=== PATIENT | female | born 1930 | race Caucasian/White ===

== ENCOUNTER 2017-03-22 18:47 | Emergency (ER) | payer MEDICARE, OTHER ==
[~2017-03-22] VITALS: Ht 147.3 cm; Wt 50.0 kg
[~2017-03-22 18:47] MED LIST: GABA300C5 PO; ISOS60TA PO; LEVO88TA2 PO; LISI-515 PO; LORA-392 PO; LOSA25TA PO; MEDI220T PO; METF500T PO; METO50TA11 PO; MIRA33504 PO; NITR1SUB3 SL; OMEP20TA PO; RANO500 PO
[2017-03-22 19:12] VITALS: BP 156/70; PULSE 95; RESP 16; TEMP 98.1; O2SAT 100
[2017-03-22 19:14] VITALS: RESP 16; O2SAT 100
--- NOTE | 2017-03-22 19:14 | PD ---
HPI Chief Complaint: Agitation Time Seen by Provider: 19:05 Travel History International Travel<30 days: No Contact w/Intl Traveler<30days: No History of Present Illness HPI The patient is an 86 year old female who presents to the [facility] emergency department with a history of agitation and paranoia prompting her family to call ambulance services to have her transported to the emergency department. The patient was combative at home and they reported to ambulance services that they are unable to care for her at home because of this. According to the record, the patient has a history of being on hospice since January of 2016. The patient denies having any acute complaints at this time other than that she is concerned that "bad people are trying to kill me". The patient denies any recent fevers, cough, congestion, neck pain, chest pain, shortness of breath, abdominal pain, vomiting, diarrhea, urinary symptoms, one- sided weakness, slurred speech, vision changes, difficulty with word finding ability, or facial droop. PFSH Past Medical History Narrative Medical The patient's past medical history is significant for hypertension, coronary artery disease, hypothyroid disorder, diabetes mellitus, arthritis, acid reflux. Asthma: No Congestive Heart Failure: Yes COPD: No Dementia: Yes Diabetes: Yes Diminished Hearing: No Hypertension: Yes Neurologic: Yes (NEUROPATHY BILAT HANDS AND FEET.) Sleep Apnea: No : 4 Para: 4 Past Surgical History Narrative Surgical The patient's past surgical history is significant for a , coronary artery bypass grafting, hysterectomy Section: Yes Coronary Artery Bypass Graft: Yes (TRIPLE CABG X2) Hysterectomy: Yes Social History Alcohol Use: No Tobacco Use: No (QUIT 1984) Substance Use: No Allergies-Medications (Allergen,Severity, Reaction): Coded Allergies: No Known Allergies (Verified Allergy, Severe, 05/24/04) Reported Meds & Prescriptions Reported Meds & Active Scripts Active Macrobid (Nitrofurantoin Monoh/Nitrofur Macro) 100 Mg Cap 100 Mg PO BID 10 Days Reported Miralax Powder (Polyethylene Glycol 3350 Powder) 17 Gm Powd 17 Gm PO DAILY Mix and dissolve one measuring cap-ful (17 grams) in water or juice. Omeprazole 20 Mg Tab 20 Mg PO BID Omeprazole 20 Mg Tab 20 Mg PO DAILY Naproxen Sodium 220 Mg Tab 220 Mg PO DAILY Gabapentin 300 Mg Cap 300 Mg PO BID Losartan (Losartan Potassium) 25 Mg Tab 25 Mg PO DAILY Ativan (Lorazepam) 0.5 Mg Tab 0.5 Mg PO Q4H PRN Metformin (Metformin HCl) 500 Mg Tab 500 Mg PO BIDPC With meals Metoprolol Succinate ER 24 HR (Metoprolol Succinate) 50 Mg Tab 50 Mg PO BID Levothyroxine (Levothyroxine Sodium) 88 Mcg Tab 88 Mcg PO DAILY Nitroglycerin SL (Nitroglycerin) 0.4 Mg Subl 0.4 Mg SL DIRECTED PRN ONE TABLET UNDER THE TONGUE NEEDED FOR CHEST PAIN, MAY REPEAT EVERY FIVE MINUTES FOR A TOTAL OF 3 DOSES OR CALL 911 IF NO RELIEF Isosorbide Mononitrate ER (Isosorbide Mononitrate) 60 Mg Tab 60 Mg PO DAILY Ranexa ER 12 HR (Ranolazine) 500 Mg Tab 500 Mg PO BID Lisinopril 20 Mg Tab 20 Mg PO DAILY Review of Systems ROS Limitations: Unresponsive General / Constitutional: No: Fever Eyes: No: Visual changes HENT: No: Headaches Cardiovascular: No: Chest Pain or Discomfort Respiratory: No: Shortness of Breath Gastrointestinal: No: Abdominal Pain Genitourinary: No: Dysuria Musculoskeletal: No: Pain Skin: No Rash Neurologic: Positive: Change in Mentation (increased paranoia), No: Weakness, Focal Abnormalities, Slurred Speech, Sensory Disturbance Psychiatric: Positive: Disorder of Thought (increased paranoia), Other (acute agitation), No: Depression Endocrine: No: Polydipsia Hematologic/Lymphatic: No: Easy Bruising Physical Exam Narrative General: The patient is a well-developed well-nourished female in no acute distress, initially on arrival, however when she attempts to get up out of the bed, redirected to sit down she becomes agitated state that people are trying to kill her. Head and Neck exam: Head is normocephalic atraumatic. Eyes: EOMI, pupils are equal round and reactive to light. Nose: Midline septum with pink mucous membranes Mouth: Dentition unremarkable. Moist mucus membranes. Posterior oropharynx is not erythematous. No tonsillar hypertrophy. Uvula midline. Airway patent. Neck: No palpable lymphadenopathy. No nuchal rigidity. No thyromegaly. Cardiovascular: Regular rate and rhythm without murmurs, gallops, or rubs. Lungs: Clear to auscultation bilaterally. No wheezes, rhonchi, or rales. Abdomen: Soft, without tenderness to palpation in all 4 quadrants of the abdomen. No guarding, rebound, or rigidity. Normal bowel sounds are audible. No tenderness on palpation of McBurney's point. Extremities: No clubbing, cyanosis, or edema. 2+ pulses in all 4 extremities. No calf tenderness on palpation. Back: No spinous process tenderness to palpation. No costovertebral angle tenderness to palpation. Neurologic Exam: This patient is oriented to person, place, however not time or situation. The patient has cranial nerves II through XII intact, strength is 5 over 5 in all 4 extremities, intact sensation over all dermatomes. Skin Exam: No rash noted. Intact skin that is warm and dry. Data Data Last Documented VS Vital Signs Date Time Temp Pulse Resp B/P Pulse Ox O2 Delivery O2 Flow Rate FiO2 03/22/17 19:14 95 16 100 Room Air 03/22/17 19:12 98.1 156/70 Orders Complete Blood Count With Diff (03/22/17 19:05) Comprehensive Metabolic Panel (03/22/17 19:05) Urinalysis - C+S If Indicated (03/22/17 19:05) Cath For Specimen (03/22/17 19:05) Iv Access Insert/Monitor (03/22/17 19:05) Ecg Monitoring (03/22/17 19:05) Oximetry (03/22/17 19:05) Lorazepam Inj (Ativan Inj) (03/22/17 19:15) Urine Culture (03/22/17 21:50) Ceftriaxone Inj (Rocephin Inj) (03/22/17 22:30) Labs Laboratory Tests Test 03/22/17 03/22/17 19:28 21:50 White Blood Count 7.0 TH/MM3 Red Blood Count 4.00 MIL/MM3 Hemoglobin 12.4 GM/DL Hematocrit 36.8 % Mean Corpuscular Volume 92.0 FL Mean Corpuscular Hemoglobin 31.1 PG Mean Corpuscular Hemoglobin 33.8 % Concent Red Cell Distribution Width 14.3 % Platelet Count 200 TH/MM3 Mean Platelet Volume 7.1 FL Neutrophils (%) (Auto) 60.3 % Lymphocytes (%) (Auto) 28.7 % Monocytes (%) (Auto) 8.0 % Eosinophils (%) (Auto) 2.0 % Basophils (%) (Auto) 1.0 % Neutrophils # (Auto) 4.2 TH/MM3 Lymphocytes # (Auto) 2.0 TH/MM3 Monocytes # (Auto) 0.6 TH/MM3 Eosinophils # (Auto) 0.1 TH/MM3 Basophils # (Auto) 0.1 TH/MM3 CBC Comment DIFF FINAL Differential Comment Sodium Level 140 MEQ/L Potassium Level 4.4 MEQ/L Chloride Level 103 MEQ/L Carbon Dioxide Level 29.9 MEQ/L Anion Gap 7 MEQ/L Blood Urea Nitrogen 23 MG/DL Creatinine 1.31 MG/DL Estimat Glomerular Filtration 38 ML/MIN Rate Random Glucose 94 MG/DL Calcium Level 9.1 MG/DL Total Bilirubin 0.7 MG/DL Aspartate Amino Transf 23 U/L (AST/SGOT) Alanine Aminotransferase 22 U/L (ALT/SGPT) Alkaline Phosphatase 129 U/L Total Protein 7.3 GM/DL Albumin 3.4 GM/DL Urine Color YELLOW Urine Turbidity HAZY Urine pH 6.0 Urine Specific [place] 1.014 Urine Protein NEG mg/dL Urine Glucose (UA) NEG mg/dL Urine Ketones NEG mg/dL Urine Occult Blood NEG Urine Nitrite POS Urine Bilirubin NEG Urine Urobilinogen LESS THAN 2.0 MG/DL Urine Leukocyte Esterase LARGE Urine RBC 4 /hpf Urine WBC 143 /hpf Urine WBC Clumps FEW Microscopic Urinalysis Comment CATH-CULTURE IND MDM Medical Decision Making Medical Screen Exam Complete: Yes Emergency Medical Condition: Yes Medical Record Reviewed: Yes Differential Diagnosis Altered mentation with agitation related to an infectious process such as a urinary tract infection, versus progressive dementia with agitation and psychosis, versus psychiatric disorder Narrative Course During the course of the patients emergency department visit, the patients history, examination, and differential diagnosis were reviewed with the patient. The patient had IV access obtained and blood work sent for analysis. The patient was placed on a diagnostic cardiac sonographer with oximetry and blood pressure monitoring. A call will be placed out to [facility] regarding this patient' s case for further recommendations regarding placement. The patient was initially provided Ativan 0.5 mg IV. The patients laboratory studies were reviewed and remarkable for a CBC that is within normal limit. CMP is remarkable for BUN of 23, creatinine 1.31, alkaline phosphatase 129, urinalysis shows positive nitrite, large leukocyte esterase, 4 rbc's, wbc's 143, wbc clumps few. The patient was given Rocephin 1 g IV. The [facility] nurse arrived at the patient's bedside. She spoke to the patient's family via phone as they never arrived in the emergency department. They reported to her that they do not feel comfortable with her coming home due to her agitation, as they are having difficulty caring for her. Placement will be arranged by [facility] as the patient at this time does not require admission to the hospital. The patient's [facility] nurse reports that this will be done in the morning. The patient will be discharged to a placement facility through [facility] with a prescription for Macrobid. The patient is resting comfortably and feels better, is alert and in no distress. The patients results and examination findings were discussed with the patient. The repeat examination is unremarkable and benign. The history, exam, diagnostic testing, and current condition do not suggest any significant pathology to warrant further testing, continued ED treatment, admission, or surgical evaluation at this point. The vital signs have been stable. The patient does not have uncontrollable pain, intractable vomiting, or other significant symptoms. The patient's condition is stable and appropriate for discharge. The patient will pursue further outpatient evaluation with a primary care physician or other designated or consulting physician as indicated in the discharge instructions. The patient expressed understanding and was agreeable with this plan. Diagnosis Primary Impression: Agitation Additional Impression: Urinary tract infection Qualified Code: N39.0 - Urinary tract infection without hematuria, site unspecified Referrals: Primary Care Physician 2 days Patient Instructions: General Instructions, Urinary Tract Infection in Women ( ED) Med/Other Pt SpecificInfo: Prescription(s) given Scripts Nitrofurantoin Monohydrate Macrocrystals (Macrobid)100 Mg Pyl215 Mg PO BID 10 Days Ref 0 Prov:Angelita Mahmood MD 03/22/17 Disposition: 03 DISCHARGE TO SNF Condition: Stable Angelita Mahmood MD March 22, 2017 19:14
[2017-03-22] MEDS ORDERED: LORazepam 2 MG/ML VIAL IV PUSH ONE (19:15)
[2017-03-22 19:32] LABS: AUTOMATED NEUTROPHIL # 4.2 TH/MM3 (1.8-7.7); BASOPHIL # 0.1 TH/MM3 (0-0.2); EOSINOPHIL # 0.1 TH/MM3 (0-0.4); HEMATOCRIT 36.8 % (35.0-46.0); HEMO FLAGS DIFF FINAL; LYMPH % 28.7 % (9.0-44.0); MEAN CORPUSCULAR HEMOGLOBIN 31.1 PG (27.0-34.0); MEAN CORPUSCULAR HGB CONC 33.8 % (32.0-36.0); NEUT % 60.3 % (16.0-70.0); PLATELET COUNT 200 TH/MM3 (150-450); RED CELL DISTRIBUTION WIDTH 14.3 % (11.6-17.2)
[2017-03-22 19:56] LABS: ANION GAP 7 MEQ/L (5-15); AST (GOT) 23 U/L (15-37); BICARBONATE 29.9 MEQ/L (21.0-32.0); BLOOD UREA NITROGEN 23 MG/DL (7-18); CHLORIDE 103 MEQ/L (98-107); GLOMERULAR FILTRATION RATE 38 ML/MIN (>89); POTASSIUM 4.4 MEQ/L (3.5-5.1); SODIUM (NA) 140 MEQ/L (136-145)
[2017-03-22 20:00] LABS: ALKALINE PHOSPHATASE 129 U/L (45-117); ALT (GPT) 22 U/L (10-53); TOTAL BILIRUBIN ADULT 0.7 MG/DL (0.2-1.0)
[2017-03-22 22:14] LABS: BLOOD, URINE NEG (NEG); COMMENT (UR) CATH-CULTURE IND; CULTURE IF INDICATED CATH CULTURE IND; GLUCOSE,URINE NEG (NEG); KETONE, URINE NEG (NEG); NITRITE,URINE POS (NEG); URINE COLOR YELLOW (YELLW/STRAW)
[2017-03-22] MEDS ORDERED: MACR100C2 PO (22:21)
[2017-03-22] MEDS ORDERED: cefTRIAXone INJ 1,000 MG in SODIUM CHLORIDE 0.9% INJ 100 ML IV ONE (22:30)
[2017-03-23 01:42] VITALS: BP 130/69; PULSE 87; RESP 20; O2SAT 97
[2017-03-23 05:30] VITALS: BP 140/78; PULSE 80; RESP 20; O2SAT 98
[2017-03-23 09:03] VITALS: BP 165/98; PULSE 84; RESP 16; TEMP 97.6; O2SAT 96
== END 2017-03-23 13:41 | disposition home or self-care (01) ==
LOC: NEPE 18:47 → NEPD 03-23 13:41
DX: R45.1 Restlessness and agitation (principal); N39.0 Urinary tract infection, site not specified; B96.20 Unspecified Escherichia coli [E. coli] as the cause of diseases classified elsewhere; F22 Delusional disorders; I10 Essential (primary) hypertension; E11.9 Type 2 diabetes mellitus without complications; E03.9 Hypothyroidism, unspecified; I50.9 Heart failure, unspecified; G62.9 Polyneuropathy, unspecified; Z95.1 Presence of aortocoronary bypass graft
CPT/HCPCS: 80053; 81001; 85025; 87077; 87086; 87186; 96365; 96366; 96375; 99285; J0696; J2060; P9612